=== PATIENT | male | born 1965 | race Caucasian/White ===

== ENCOUNTER 2017-09-21 20:09 | Emergency (ER) | payer BC ==
[2017-09-21 20:46] LABS: BASOPHILS 0.3 % (0-2); EOSINOPHILS 0.5 % (0-7); HEMATOCRIT 41.6 % (42.0-54.0); HEMOGLOBIN 14.1 g/dL (13.5-17.5); IMMATURE GRANULOCYTES 0.1 % (0-5); MCH 31.2 pg (26.0-34.0); MCHC 33.9 g/dL (31.0-37.0); MEAN PLATELET VOLUME 9.6 fL (7.4-10.4); MONOCYTES 10.7 % (2-11); NEUTROPHILS 58.4 % (40-80); PLATELET COUNT 229 10x3/uL (130-400); RBC 4.52 10x6/uL (4.20-6.10); RDW 12.6 % (11.5-14.5); WBC 9.2 10x3/uL (4.8-10.8)
[2017-09-21 21:08] LABS: ALBUMIN 3.9 g/dL (3.4-5.0); ANION GAP 12.9 mmol/L (8-16); BILIRUBIN - TOTAL 0.41 mg/dL (0.2-1.3); CARBON DIOXIDE 25.9 mmol/L (21.0-32.0); CREATININE - SERUM 1.1 mg/dL (0.6-1.3); POTASSIUM - SERUM 3.8 mmol/L (3.5-5.1); PROTEIN - SERUM 8.1 g/dL (6.4-8.2)
[2017-09-21 21:37] LABS: APPEARANCE CLEAR (CLEAR); BILIRUBIN NEGATIVE (NEGATIVE); COLOR YELLOW (YELLOW); GLUCOSE NEGATIVE (NEGATIVE); KETONE NEGATIVE (NEGATIVE); NITRITE NEGATIVE (NEGATIVE); PROTEIN NEGATIVE (NEGATIVE); UROBILINOGEN NORMAL (NORMAL)
== END 2017-09-21 23:28 | disposition home or self-care (01) ==
LOC: D.ER 20:09
PROVIDERS: Emergency Medicine
DX: E86.0 Dehydration (principal); N40.0 Benign prostatic hyperplasia without lower urinary tract symptoms; K58.9 Irritable bowel syndrome, unspecified; I49.3 Ventricular premature depolarization